=== PATIENT | female | born 1955 | race Caucasian/White ===

== ENCOUNTER 2019-08-28 10:42 | Outpatient (CLI) | payer BC, OTHER ==
[2019-08-29 11:37] LABS: SARS-CoV-2 MS2 Positive; SARS-CoV-2 N Gene Negative; SARS-CoV-2 S Gene Negative; SARS-CoV-2 orf1ab Negative
== END 2019-08-28 10:43 | disposition home or self-care (01) ==
LOC: LABBT 10:42
PROVIDERS: ATTEND Ophthalmology Retina Specialist
DX: Z01.812 Encounter for preprocedural laboratory examination (principal); Z11.59 Encounter for screening for other viral diseases
CPT/HCPCS: 87635; U0003

== ENCOUNTER 2019-09-01 08:09 | Day surgery (SDC) | payer BC ==
[2019-08-31 10:30] VITALS: BMI 24.2
[~2019-09-01 08:09] MED LIST: EPINEPHrine 0.3 MG in Ophthalmic Irrigation Solution 500 ML IRR SCH
[2019-09-01] MEDS ORDERED: Cyclopentolate 1% Opth Drop 2 ML BOT ONE (08:45)
[2019-09-01] MEDS ORDERED: Phenylephrine 2.5% Ophth Soln 5 ML BOT ONE (08:45)
[2019-09-01] MEDS ORDERED: Famotidine/PF 20 mg/2ml Vial ONE (08:45)
[2019-09-01] MEDS ORDERED: Fentanyl 100 MCG/2 ML VIAL ONE (10:16)
[2019-09-01] MEDS ORDERED: PROPOFOL 20 ML ONE (10:16)
[2019-09-01] MEDS ORDERED: CEFAZOLIN 1 GM VIAL ONE (10:50)
[2019-09-01] MEDS ORDERED: PROPOFOL 200 MG/20 ML VIAL ONE (10:50)
[2019-09-01] MEDS ORDERED: Indocyanine Green 25 MG/10 ML VIAL ONE (10:50)
[2019-09-01] MEDS ORDERED: Tobramycin/Dexamethasone Ophth Oint 3.5 GM TUBE ONE (10:50)
[2019-09-01] MEDS ORDERED: Triamcinolone 40 MG/ML VIAL ONE (10:50)
[2019-09-01] MEDS ORDERED: Lidocaine 1% PF 5 ML VIAL ONE (10:50)
[2019-09-01] MEDS ORDERED: Bupivacaine PF 0.75% SDV 10 ML ONE (10:50)
[2019-09-01] MEDS ORDERED: Lidocaine 4% PF 5 ML AMP ONE (10:50)
--- NOTE | 2019-09-01 14:46 | OP ---
DATE OF PROCEDURE: 09/01/2019 PREOPERATIVE DIAGNOSIS: Epiretinal membrane, right eye. POSTOPERATIVE DIAGNOSES: 1. Epiretinal membrane, right eye. 2. Horseshoe retinal tear superotemporally, right eye. PROCEDURES PERFORMED: 1. A 25-gauge pars plana vitrectomy, right eye. 2. Epiretinal membrane/internal limiting membrane peel, right eye. 3. Endolaser, right eye. ESTIMATED BLOOD LOSS: None. SPECIMENS REMOVED: None. COMPLICATIONS: None. DESCRIPTION OF PROCEDURE: The patient was identified in the preoperative holding area, where the correct eye being the right eye was marked for surgery. The patient was taken to the operating room, where MAC anesthesia was induced. The right eye was prepped and draped in usual sterile ophthalmic fashion for surgery. A wire-clip lid speculum was placed. An inferonasal conjunctival peritomy was fashioned with Danni scissors for administration of a sub-Tenon's block. The block consisted of 1:1 ratio of 4% lidocaine and 0.75% Marcaine. A total of 5 mL was administered. A standard 25-gauge pars plana vitrectomy platform was fashioned with trocars placed approximately 4 mm from limbus. The infusion was noted to be within the vitreous cavity prior to being turned on to an infusion pressure of 30 mmHg. The light pipe microvitrector was introduced in the eye under visualization of the BIOM viewing system. A careful core and peripheral shave vitrectomy were performed. On performing vitrectomy, a small horseshoe retinal tear was noted superotemporally at approximately 10 o'clock. Great care was taken to relieve all traction of the aforementioned defect. Of note, this appeared to be a chronic defect with a natural barricade around. Following vitrectomy, ICG dye was then inserted in the eye to stain the internal limiting membrane. Using the Jomar ILM forceps, the epiretinal membrane/internal limiting membrane complex was gently removed in a circumferential fashion about the fovea. The peel extended approximately 2 disk diameters in radius circumferentially. Following peeling, the microvitrector was reintroduced in the eye to remove the residual vitreous debris. The endolaser was used to provide additional barricade around the existing defect at 10 o'clock. The cannulas were sequentially removed and all sclerotomies were noted to be watertight. Subconjunctival Ancef and Kenalog were injected. The wire-clip lid speculum was removed followed by application of TobraDex ophthalmic ointment and a light patch and shield. The patient tolerated procedure well and was taken to the outpatient recovery area in good condition. Job ID: [id number]
== END 2019-09-01 11:45 | disposition home or self-care (01) ==
LOC: EEVIPCON 08:09 → SDC 08:09
PROVIDERS: ATTEND Ophthalmology Retina Specialist
PROC: 08T43ZZ Resection of Right Vitreous, Percutaneous Approach (ICD-10-PCS; principal; 2019-09-01)
PROC: 08NE3ZZ Release Right Retina, Percutaneous Approach (ICD-10-PCS; principal; 2019-09-01)
DX: H35.371 Puckering of macula, right eye (principal); H33.311 Horseshoe tear of retina without detachment, right eye; Z79.899 Other long term (current) drug therapy
CPT/HCPCS: J0171; J0690; J2001; J2704; J3010; J3301; J3490; S0028